=== PATIENT | male | born 1985 | race Asian ===

== ENCOUNTER 2022-01-28 00:34 | Emergency (ER) | payer BC ==
[~2022-01-28] VITALS: Ht 157.5 cm; Wt 61.3 kg
[2022-01-28] MEDS ORDERED: PROCHLORPERAZINE 10 MG/2 ML VIAL. IV ONE (01:30)
[2022-01-28] MEDS ORDERED: IV RINGERS,LACTATED 500ML 500 ML IV ONE (01:30)
[2022-01-28] MEDS ORDERED: KETOROLAC 15 MG/ML VIAL. IVP ONE (01:30)
[2022-01-28] MEDS ORDERED: diphenhydrAMINE 50 MG/ML VIAL IVP ONE (01:30)
--- NOTE | 2022-01-28 03:04 | PHYS DOC ---
Past Medical History Past Surgical History: No Surgical History Smoking Status: Current Some Day Smoker Alcohol Use: Occasionally General Adult EDM: Chief Complaint: HEADACHE HPI: HPI: Patient is a 36 year old male with no significant past medical history presents to the emergency department today complaining of left-sided hip pain. Patient states that the pain began on . He describes pain as sharp. He states is about a 7 out of 10. He states pain is worse at night. He denies any fevers or chills. He denies any trauma to his head. He states this feels superficial like the pain is in his scalp. He denies any nausea or vomiting. He denies any changes in his vision. He denies any focal weakness or sensory changes. Pain was not sudden in onset or maximal at onset. Review of Systems: Review of Systems: Constitutional: Denies fever or chills. [] Eyes: Denies change in visual acuity. [] HENT: Denies nasal congestion or sore throat. [] Respiratory: Denies cough or shortness of breath. [] Cardiovascular: Denies chest pain or edema. [] GI: Denies abdominal pain, nausea, vomiting, bloody stools or diarrhea. [] : Denies dysuria. [] Musculoskeletal: Denies back pain or joint pain. [] Integument: Denies rash. [] Neurologic: Denies focal weakness or sensory changes. [] Endocrine: Denies polyuria or polydipsia. [] Lymphatic: Denies swollen glands. [] Psychiatric: Denies depression or anxiety. [] Heart Score: C/O Chest Pain: No Family History: Family History: Noncontributory Current Medications: Current Medications Medications (Trade) Dose Ordered Sig/Whitley Start Time Stop Time Status Last Admin Dose Admin Diphenhydramine HCl (Benadryl) 25 mg 1X ONCE 01/28/22 01:30 01/28/22 01:34 DC 01/28/22 01:46 25 MG Ketorolac Tromethamine (Toradol 15mg Vial) 15 mg 1X ONCE 01/28/22 01:30 01/28/22 01:34 DC 01/28/22 01:46 15 MG Prochlorperazine Edisylate (Compazine) 10 mg 1X ONCE 01/28/22 01:30 01/28/22 01:34 DC 01/28/22 01:46 10 MG Ringer's Solution 500 ml @ 500 mls/hr 1X ONCE 01/28/22 01:30 01/28/22 02:29 DC 01/28/22 01:30 500 MLS/HR Allergies: Allergies: Allergies Coded Allergies Type Severity Reaction Last Updated Verified No Known Drug Allergies 01/28/22 No Physical Exam: PE: Constitutional: Well developed, well nourished, no acute distress, non-toxic appearance. [] HENT: Normocephalic, atraumatic, bilateral external ears normal, oropharynx moist, no oral exudates, nose normal. [] Eyes: PERRLA, EOMI, conjunctiva normal, no discharge. [] Neck: Normal range of motion, no tenderness, supple, no stridor. [] Cardiovascular:Heart rate regular rhythm, no murmur [] Lungs & Thorax: Bilateral breath sounds clear to auscultation [] Abdomen: Bowel sounds normal, soft, no tenderness, no masses, no pulsatile masses. [] Skin: Warm, dry, no erythema, no rash. [] Back: No tenderness, no CVA tenderness. [] Extremities: No tenderness, no cyanosis, no clubbing, ROM intact, no edema. [] Neurologic: Alert and oriented X 3, normal motor function, normal sensory fun ction, no focal deficits noted. [] Psychologic: Affect normal, judgement normal, mood normal. [] Current Patient Data: Vital Signs: Vital Signs Date Time Temp Pulse Resp B/P (MAP) Pulse Ox O2 Delivery O2 Flow Rate FiO2 01/28/22 00:48 98.4 85 18 162/89 (113) 99 Room Air 98.4 EKG: EKG: [] Radiology/Procedures: Radiology/Procedures: [] Course & Med Decision Making: Course & Med Decision Making Patient remained hemodynamically stable in the emergency department. He was evaluated at the bedside with a physical exam. Patient was given 500 cc of lactated Ringer's. He was given Toradol, Compazine and Benadryl. On reassessment patient's head pain has resolved. We will discharge him home and have him follow-up with his PCP. Jatin Disclaimer: Jatin Disclaimer: This electronic medical record was generated, in whole or in part, using a voice recognition dictation system. Departure Departure Impression: Primary Impression: Head pain Disposition: HOME / SELF CARE / HOMELESS Condition: IMPROVED Referrals: NO PCP (PCP) Patient Instructions: General Headache Without Cause, [id number] DINORAH WIGGINS MD January 28, 2022 03:04
[2022-01-28 03:27] VITALS: BP 132/90
== END 2022-01-28 03:40 | disposition home or self-care (01) ==
LOC: ER 00:34
DX: R51.9 Headache, unspecified (principal); M25.552 Pain in left hip; F17.200 Nicotine dependence, unspecified, uncomplicated
CPT/HCPCS: 96361; 96374; 96375; 99285; J0780; J1200; J1885; J7120